=== PATIENT | female | born 1995 | race Caucasian/White ===

== ENCOUNTER 2019-12-10 12:22 | Emergency (ER) | payer BC, SELFPAY ==
--- NOTE | 2019-12-10 12:26 | ED.GENADULT ---
HPI - General Adult General Chief complaint: Upper Respiratory Infection Stated complaint: Ears throat and cough Time Seen by Provider: 12/10/19 12:38 Source: patient Mode of arrival: ambulatory Limitations: no limitations History of Present Illness HPI narrative: 24-year-old female patient presents to the [facility] with complaints of sore throat for the past week. Patient states she has had a little bit of pain to bilateral ears as well. Denies any fevers but states she has had a little bit of a stuffy runny nose especially in the morning. Denies any chest pain, shortness of breath. Patient states a slight cough and does admit to vaping. Denies any abdominal pain, nausea, vomiting or diarrhea. Patient denies getting a flu shot this year. Patient states she has been taking [id number] sinus medication and Mucinex for her symptoms so far. Related Data Home Medications Medication Instructions Recorded Confirmed omeprazole 20 mg PO DAILY 12/10/19 12/10/19 Allergies Allergy/AdvReac Type Severity Reaction Status Date / Time No Known Allergies Allergy Unknown Verified 12/10/19 12:37 Review of Systems Review of Systems: Narrative: CONSTITUTIONAL: Denies fever, chills, or sweats. EYES: Denies visual changes, redness, or discharge. ENT: Positive rhinorrhea, congestion, sore throat, and bilateral otalgia. CARDIOVASCULAR: Denies chest pain, palpitations, or edema. RESPIRATORY: Positive mild cough denies dyspnea. GASTROINTESTINAL: Denies abdominal pain, nausea, vomiting, or diarrhea. GENITOURINARY: Denies dysuria or hematuria. SKIN: Denies rash or itching. MUSCULOSKELETAL: Denies back pain, joint pain, or myalgia. NEUROLOGIC: Denies headache, numbness, or weakness. PSYCHIATRIC: Denies anxiety or depression. PMFSH Comments At the time of my signature I agree with nursing past medical history, surgical, social, and family history. There is no relevant family history pertinent to the presenting complaint. Exam Narrative: Exam Narrative: GENERAL: Well-appearing, well-nourished, and in no acute distress. HEAD: Normocephalic, atraumatic. No tenderness noted to frontal maxillary sinuses on palpation EYES: PERRLA and EOMI. ENT: Nares with erythema and edema noted bilaterally, patent, no rhinorrhea or epistaxis. Mucous membranes moist. Posterior pharynx with slight erythema no tonsil enlargement, no exudates or lesions present. There is a little bit of fluid noted behind bilateral TMs on exam. NECK: Supple. No lymphadenopathy CHEST: Clear to auscultation. No respiratory distress. HEART: Regular rate and rhythm. No murmur heard. Normal peripheral pulses. ABDOMEN: Soft, nontender, nondistended, normal active bowel sounds. EXTREMITIES: Normal range of motion. No edema. SKIN: Warm, dry, no rash. NEURO: No focal deficits. Alert and oriented x3. Course Reevaluation(s) Reevaluation #1: Notified patient that she is positive today for strep. Discussed with her that we will discharge her home with an antibiotic for the strep infection she can continue taking Tylenol, ibuprofen and sinus medications for her symptoms. Discussed with patient I will write her off of work for today and tomorrow that she go back to work after that with no restrictions. Patient verbalized understanding denies any other questions or concerns at this time. Date: 12/10/19 Time: 12:51 Vital Signs Vital signs: Vital Signs Temperature 36.8 C 12/10/19 12:29 Pulse Rate 82 12/10/19 12:29 Respiratory Rate 16 12/10/19 12:29 Blood Pressure 111/67 12/10/19 12:29 Pulse Oximetry 99 12/10/19 12:29 Temperature 36.8 C 12/10/19 12:29 Pulse Rate 82 12/10/19 12:29 Respiratory Rate 16 12/10/19 12:29 Blood Pressure 111/67 12/10/19 12:29 Pulse Oximetry 99 12/10/19 12:29 Vital signs reviewed. Medical Decision Making Differential Diagnosis Differential Diagnosis: Differential diagnosis: Allergic rhinitis, chronic sinusitis, tonsillitis,
[2019-12-10 12:29] VITALS: BP 111/67; PULSE 82; RESP 16; TEMP 36.8; O2SAT 99
== END 2019-12-10 12:51 | disposition home or self-care (01) ==
PROVIDERS: Emergency Provider Nurse Practitioner Family
DX: J02.0 Streptococcal pharyngitis (principal); K21.9 Gastro-esophageal reflux disease without esophagitis
CPT/HCPCS: 87880; 99213; G0463

== ENCOUNTER 2020-01-10 08:23 | Emergency (ER) | payer BC, SELFPAY ==
[2020-01-10 08:24] VITALS: TEMP 36.9
--- NOTE | 2020-01-10 08:31 | ED.URI ---
HPI - URI/Sore Throat General Chief Complaint: Upper Respiratory Infection Stated Complaint: Ear pain/pressure/sore throat Time Seen by Provider: 01/10/20 08:34 Source: patient and RN notes reviewed History of Present Illness HPI Narrative: Patient is a 24-year-old female that presents the urgent care with complaints of bilateral ear pain/pressure and sore throat for 3 days. Patient states that she was treated for strep 2 weeks ago with amoxicillin and symptoms did improve. Patient has not used anything for her return of symptoms in the last 3 days. Denies any fever, chills, nausea, vomiting. Denies any shortness of breath or cough. Denies any known exposure to COVID-19. No other acute complaints. No acute distress noted. Patient read the plan of care. Related Data Allergies Allergy/AdvReac Type Severity Reaction Status Date / Time No Known Allergies Allergy Unknown Verified 12/10/19 12:37 Review of Systems Review of Systems: Narrative: CONSTITUTIONAL: Denies fever, chills, or sweats. EYES: Denies visual changes, redness, or discharge. ENT: Reports of sore throat and bilateral ear pain CARDIOVASCULAR: Denies chest pain, palpitations, or edema. RESPIRATORY: Denies cough or dyspnea. GASTROINTESTINAL: Denies abdominal pain, nausea, vomiting, or diarrhea. GENITOURINARY: Denies dysuria or hematuria. SKIN: Denies rash or itching. MUSCULOSKELETAL: Denies back pain, joint pain, or myalgia. NEUROLOGIC: Denies headache, numbness, or weakness. All other systems reviewed are negative, except as documented in HPI. PMFSH Comments At the time of my signature, I reviewed and agree with the nursing past medical, surgical, social, and family history. There is no relevant family history pertinent to the patient complaint. Exam Narrative: Exam Narrative: GENERAL: This is a well-nourished, well-developed patient, in no apparent distress. HEAD: normocephalic, atraumatic. EYES: PERRL. Sclera clear/white. Vision is grossly intact. EARS: External ears normal, auditory canals clear and without drainage, TMs normal without perforation. Hearing grossly intact. NOSE: External nose normal with no obvious nasal discharge THROAT: Mucous membranes moist, posterior pharynx clear. Moderate postnasal drainage NECK: Neck supple CARDIOVASCULAR: Regular rate and rhythm without murmurs, gallops, or rubs. RESPIRATORY: Clear to auscultation. Breath sounds equal bilaterally. No wheezes, rales, or rhonchi. SKIN: warm, intact with no suspicious lesions or rash, good texture and turgor. NEURO: awake, alert, and oriented to person, place and time. There were no obvious focal neurologic abnormalities. EXTREMITIES: No clubbing, cyanosis, or edema. Course Vital Signs Vital signs: Vital Signs Temperature 98.4 F 01/10/20 08:24 Temperature 98.4 F 01/10/20 08:24 Pulse Rate 89 01/10/20 08:42 Respiratory Rate 18 01/10/20 08:42 Blood Pressure 114/77 01/10/20 08:42 Pulse Oximetry 100 01/10/20 08:42 Reviewed MDM - URI/Sore Throat MDM Narrative Medical decision making narrative: Reviewed lab results with the patient. She is aware that strep swab was negative. Educated patient on culture we will call within 72 hours if culture is positive and antibiotics are necessary. Advised the patient to use Claritin and Flonase for postnasal drainage and symptom relief. May use Tylenol or ibuprofen as needed. Increase fluids. Use humidifier at night. Symptoms are most likely due to allergies. Follow-up with PCP within 2 to 5 days or for worsening symptoms or failure to improve. Differential Diagnosis Differential diagnosis: Likely upper respiratory infection, otitis media, sinusitis, viral infection, bronchitis, influenza and pharyngitis Lab Data Attestation: I reviewed the patient's lab results. Labs: Strep Screen Presumptive Negative *(Reference Range: Negative)* Critical Care Time Critical Care Time Critical Care Time:
[2020-01-10 08:42] VITALS: BP 114/77; PULSE 89; RESP 18; O2SAT 100
== END 2020-01-10 08:55 | disposition home or self-care (01) ==
PROVIDERS: Emergency Provider Nurse Practitioner Family
DX: J02.9 Acute pharyngitis, unspecified (principal)
CPT/HCPCS: 87081; 87880; 99213; G0463

== ENCOUNTER 2020-06-13 13:16 | Emergency (ER) | payer BC, SELFPAY ==
--- NOTE | 2020-06-13 13:28 | ED.URI ---
HPI - URI/Sore Throat General Chief Complaint: Upper Respiratory Infection Stated Complaint: sore throat/ear pain Time Seen by Provider: 06/13/20 13:29 Source: patient and RN notes reviewed History of Present Illness HPI Narrative: Patient is a 24-year-old female who presents the urgent care with complaints of sore throat and ear pain for 3 days. Patient states that she has been using hot tea and ibuprofen. States that her last dose of ibuprofen was last night. Also reports of a fever. Denies of any nausea or vomiting. No other acute complaints. No acute distress noted. Patient aware of the plan of care. Some parts of this dictation were generated by voice recognition software and may contain typographical and/or grammatical inaccuracies. Related Data Home Medications Medication Instructions Recorded Confirmed norethindrone-e.estradiol-iron [Lo 1 tablet PO DAILY 06/13/20 06/13/20 Loestrin Fe] Allergies Allergy/AdvReac Type Severity Reaction Status Date / Time No Known Allergies Allergy Unknown Verified 06/13/20 13:35 Review of Systems Review of Systems: Narrative: CONSTITUTIONAL: Reports a fever EYES: Denies visual changes, redness, or discharge. ENT: Reports of otalgia and sore throat CARDIOVASCULAR: Denies chest pain, palpitations, or edema. RESPIRATORY: Denies cough or dyspnea. GASTROINTESTINAL: Denies abdominal pain, nausea, vomiting, or diarrhea. GENITOURINARY: Denies dysuria or hematuria. SKIN: Denies rash or itching. MUSCULOSKELETAL: Denies back pain, joint pain, or myalgia. NEUROLOGIC: Denies headache, numbness, or weakness. All other systems reviewed are negative, except as documented in HPI. PMFSH Comments At the time of my signature, I reviewed and agree with the nursing past medical, surgical, social, and family history. There is no relevant family history pertinent to the patient complaint. Exam Narrative: Exam Narrative: GENERAL: This is a well-nourished, well-developed patient, in no apparent distress. HEAD: normocephalic, atraumatic. EYES: PERRL. Sclera clear/white. Vision is grossly intact. EARS: External ears normal, auditory canals clear and without drainage, TMs normal without perforation. Hearing grossly intact. NOSE: External nose normal with no obvious nasal discharge, nares without redness, no rhinorrhea. THROAT: Mucous membranes moist, posterior pharynx clear. NECK: Neck supple, non-tender without lymphadenopathy, masses or thyromegaly. CARDIOVASCULAR: Regular rate and rhythm without murmurs, gallops, or rubs. RESPIRATORY: Clear to auscultation. Breath sounds equal bilaterally. No wheezes, rales, or rhonchi. SKIN: warm, intact with no suspicious lesions or rash, good texture and turgor. NEURO: awake, alert, and oriented to person, place and time. There were no obvious focal neurologic abnormalities. EXTREMITIES: No clubbing, cyanosis, or edema. Course Vital Signs Vital signs: Vital Signs Temperature 100.3 F H 06/13/20 13:31 Pulse Rate 122 H 06/13/20 13:31 Respiratory Rate 06/13/20 13:31 Blood Pressure 136/70 06/13/20 13:31 Pulse Oximetry 100 06/13/20 13:31 Temperature 100.3 F H 06/13/20 13:31 Pulse Rate 122 H 06/13/20 13:31 Respiratory Rate 06/13/20 13:31 Blood Pressure 136/70 06/13/20 13:31 Pulse Oximetry 100 06/13/20 13:31 Reviewed MDM - URI/Sore Throat MDM Narrative Medical decision making narrative: Reviewed lab results with the patient. She is aware that strep swab was negative. Educated patient on culture. Considering we will be treating for tonsillitis, we will not call for a positive culture. Antibiotics will also treat if culture is positive. Therefore, if you would like to know your culture results, call back to the facility after 72 hours. Make sure to complete the antibiotic regimen. Use a [id number] antihistamine such as Benadryl, Zyrtec, Claritin for postnasal drainage and symptom relief. Do not sleep with the wi
[2020-06-13 13:31] VITALS: BP 136/70; PULSE 122; RESP 20; TEMP 37.9; O2SAT 100
== END 2020-06-13 14:07 | disposition home or self-care (01) ==
PROVIDERS: Emergency Provider Nurse Practitioner Family
DX: J02.9 Acute pharyngitis, unspecified (principal); K21.9 Gastro-esophageal reflux disease without esophagitis
CPT/HCPCS: 87081; 87880; 99213; G0463

== ENCOUNTER 2021-02-26 11:58 | Emergency (ER) | payer BC, SELFPAY ==
[2021-02-26 12:07] VITALS: BP 122/66; PULSE 97; RESP 18; TEMP 37.4; O2SAT 100
--- NOTE | 2021-02-26 12:08 | ED.URI ---
HPI - URI/Sore Throat General Chief Complaint: Upper Respiratory Infection Stated Complaint: Congested, Coughing Time Seen by Provider: 02/26/21 12:09 Source: patient and RN notes reviewed Mode of arrival: ambulatory Limitations: no limitations History of Present Illness HPI Narrative: 25 yo female presents to the [facility] with C/O Sinus congestion and runny nose for 4 days, Since has progressed to a productive cough. States her coughing has kept her up most of last night. States that work sent her home yesterday, Denies needing a covid test for return. Denies abdominal pain and chest pain. Denies nausea vomiting or diarrhea. Denies fevers. Related Data Allergies Allergy/AdvReac Type Severity Reaction Status Date / Time No Known Allergies Allergy Unknown Verified 02/26/21 12:18 Review of Systems Review of Systems: All systems reviewed & are unremarkable except as noted in HPI and below Constitutional: Constitutional: Reports no additional constitutional complaints, Denies chills, Denies fatigue, Denies fever(s) and Denies weakness Eyes: Eyes: Reports no additional eye complaints ENT: Reports as per HPI, Denies dysphagia, Denies dizziness, Reports nasal congestion and Denies sore throat Cardiovascular: Cardiovascular: Reports no additional cardiovascular complaints and Denies chest pain Respiratory: Respiratory: Reports as per HPI, Reports chest congestion, Reports cough, Denies dyspnea and Denies wheezing Gastrointestinal: Gastrointestinal: Reports no additional gastrointestinal complaints, Denies abdominal pain, Denies diarrhea, Denies nausea and Denies vomiting Musculoskeletal: Musculoskeletal: Reports no additional musculoskeletal complaints, Denies back pain, Denies myalgias and Denies muscle cramps Integumentary/Breasts: Skin/Breast: Reports system reviewed and no additional complaints, except as docu and Denies rash Neurologic: Reports system reviewed and no additional complaints, except as documented, Denies dizziness and Denies headache(s) Psychiatric: Psychiatric: Reports no additional psychiatric complaints PMFSH Comments At the time of my signature, I reviewed and agree with the nursing past medical, surgical, social, and family history. There is no relevant family history pertinent to the patient complaint. Exam Const: General: healthy appearing, no acute distress and alert Nutritional Appearance: well nourished Orientation/consciousness: patient oriented x3 Limitations: no limitations HENMT: Head: normal to inspection and atraumatic Ears: hearing grossly normal bilaterally, external ears normal and TM's normal bilaterally General nose exam: Normal external nose present, Abnormal mucous membranes and turbinates present boggy; not erythematous and not pale and Nasal discharge present clear Face and sinus: normal facial exam, sinuses nontender and face symmetric Mouth: Yes Normal oral and palatal mucosa present and Yes lip normal Throat: tonsils normal, uvula midline and postnasal drainage Eyes: Conjunctivae: conjunctivae normal Pupils: Equal, round and reactive pupils present Neck: Neck: normal visual inspection, no lymphadenopathy and no meningeal signs Chest: Chest palpation & inspection: normal inspection of the chest Resp: Effort & Inspection: normal respiratory effort and no use of accessory muscles Auscultation: clear to auscultation bilaterally, no crackles, no rales, no rhonchi and no wheezes Cardio: Rate: regular rate Rhythm: regular rhythm GI: GI Palp: Yes Soft to palpation and No Tenderness to palpation present (GI) : General: Yes no CVA tenderness Back/Spine/Pelvis: Back: no CVA tenderness Skin: General skin exam: normal color Rashes: no rashes Neuro: General: patient oriented x3, moves all extremities, no meningeal signs and no focal motor deficits Speech: normal speech Gait exam (Neuro): Normal gait present Extrem: General: normal to inspection and no pedal edema Psyc
== END 2021-02-26 12:25 | disposition home or self-care (01) ==
PROVIDERS: Emergency Provider Nurse Practitioner
DX: J32.9 Chronic sinusitis, unspecified (principal)
CPT/HCPCS: 99213; G0463

== ENCOUNTER 2021-05-04 11:48 | Emergency (ER) | payer BC, SELFPAY ==
[2021-05-04 11:54] VITALS: BP 116/55; PULSE 86; RESP 16; TEMP 37.1; O2SAT 100
[2021-05-04 12:01] VITALS: BP 116/55; PULSE 86; RESP 16; TEMP 37.1; O2SAT 100
--- NOTE | 2021-05-04 12:21 | ED.FEMALEGU ---
HPI - Female Genitourinary General Chief complaint: Urogenital-Female Stated complaint: Pt. is and has blood in urine Time Seen by Provider: 05/04/21 12:05 Source: patient and RN notes reviewed Mode of arrival: ambulatory Limitations: no limitations History of Present Illness HPI Narrative: Patient presents today complaining of a 3-day history of intermittent pink-tinged blood on the toilet paper when patient wipes after urinating, as well as some urinary frequency. Denies dysuria, abdominal pain, back pain, gross blood in the urine. Patient is 5 weeks . She has not yet had her first appointment or initiated care with an COUNTER CLERK. Patient does not remember getting any RhoGam during her last /delivery Related Data Allergies Allergy/AdvReac Type Severity Reaction Status Date / Time No Known Allergies Allergy Unknown Verified 02/26/21 12:18 Review of Systems Review of Systems: CONSTITUTIONAL: Denies body aches, fever, chills, or sweats. EYES: Denies visual changes, redness, or discharge. ENT: Denies rhinorrhea, congestion, sore throat, or otalgia. CARDIOVASCULAR: Denies chest pain, palpitations, or edema. RESPIRATORY: Denies cough or dyspnea. GASTROINTESTINAL: Denies abdominal pain, nausea, vomiting, or diarrhea. GENITOURINARY: Denies dysuria. + Blood on the toilet paper, frequency SKIN: Denies rash, itching, or wounds. MUSCULOSKELETAL: Denies back pain, joint pain, or myalgia. NEUROLOGIC: Denies headache, numbness, tingling, or weakness. PSYCH: Denies depression or anxiety. PMFSH Social History Social History Gender identity (if verbalized by the patient): Female Comments At time of signature, I have reviewed and agree with nursing past medical, surgical, social and family history unless otherwise noted. Please see nursing chart for further information. There is no relevant family history pertinent to the presenting complaint Exam Narrative: GENERAL: Well-appearing, well-nourished, and in no acute distress. HEAD: Normocephalic, atraumatic. EYES: EOMI. No redness or drainage. ENT: Mucous membranes pink and moist. NECK: Normal AROM. CHEST: No respiratory distress. Clear to auscultation. HEART: Regular rate and rhythm. No murmur appreciated. Normal peripheral pulses. ABDOMEN: Soft, nontender, nondistended, normal active bowel sounds. MUSCULOSKELETAL: No bony tenderness. EXTREMITIES: Normal range of motion. No edema. SKIN: Warm, dry, no rash. Capillary refill normal. Normal skin turgor. NEURO: No focal deficits. Alert and oriented x3. Gait steady. PSYCH: Normal affect. No signs of depression or anxiety. Course Vital Signs Vital signs: Vital Signs Temperature 98.8 F 05/04/21 11:54 Pulse Rate 86 05/04/21 11:54 Respiratory Rate 16 05/04/21 11:54 Blood Pressure 116/55 L 05/04/21 11:54 Pulse Oximetry 100 05/04/21 11:54 Temperature 98.8 F 05/04/21 12:01 Pulse Rate 86 05/04/21 12:01 Respiratory Rate 16 05/04/21 12:01 Blood Pressure 116/55 L 05/04/21 12:01 Pulse Oximetry 100 05/04/21 12:01 Reviewed MDM - Female Genitourinary Differential Diagnosis Differential diagnosis: Likely urinary tract infection and other (Spotting, miscarriage) Lab Data Attestation: I reviewed the patient's lab results. Labs: Urine Glucose Negative Reference Range: Negative Urine Bilirubin Negative Reference Range: Negative Urine Ketone Negative Reference Range: Negative Urine Specific [place] 1.030 Reference Range:1.001-1.035 Urine Blood Trace Reference Range: Nega
== END 2021-05-04 12:32 | disposition home or self-care (01) ==
PROVIDERS: Emergency Provider Nurse Practitioner
DX: O23.41 Unspecified infection of urinary tract in pregnancy, first trimester (principal); Z3A.01 Less than 8 weeks gestation of pregnancy
CPT/HCPCS: 81003; 87086; 99213; G0463

== ENCOUNTER 2021-07-21 09:00 | Emergency (ER) | payer BC, SELFPAY ==
[2021-07-21 09:05] VITALS: BP 126/76; PULSE 96; RESP 20; TEMP 36.8; O2SAT 100
--- NOTE | 2021-07-21 09:09 | ED.URI ---
HPI - URI/Sore Throat General Chief Complaint: Upper Respiratory Infection Stated Complaint: tina,ear pain,severe headache Time Seen by Provider: 07/21/21 09:11 Source: patient and RN notes reviewed Mode of arrival: ambulatory Limitations: no limitations History of Present Illness HPI Narrative: Iram is a 25 year old female patient who ambulated into [facility]. Patient states she has and sinus pain, sinus pressure, headache, cough, yellow congestion for 1 week. Patient has been taking Tylenol Cold and flu. Patient rates her headache a 5/10. Patient is 17 weeks .Denies any complications during . Related Data Home Medications Medication Instructions Recorded Confirmed vit-iron fum-folic ac 1 tablet PO DAILY 07/21/21 07/21/21 [ Tablet] Allergies Allergy/AdvReac Type Severity Reaction Status Date / Time No Known Allergies Allergy Unknown Verified 07/21/21 09:24 Review of Systems Review of Systems: CONSTITUTIONAL: Denies body aches, fever, chills, or sweats. EYES: Denies visual changes, redness, or discharge. ENT: + rhinorrhea, + congestion, sore throat, + otalgia. CARDIOVASCULAR: Denies chest pain, palpitations, or edema. RESPIRATORY: Denies cough or dyspnea. GASTROINTESTINAL: Denies abdominal pain, nausea, vomiting, or diarrhea. GENITOURINARY: Denies dysuria or hematuria. SKIN: Denies rash, itching, or wounds. MUSCULOSKELETAL: Denies back pain, joint pain, or myalgia. NEUROLOGIC: Denies headache, numbness, tingling, or weakness. PSYCH: Denies depression or anxiety. All systems reviewed & are unremarkable except as noted in HPI and below PMFSH Social History Social History Gender identity (if verbalized by the patient): Female Comments At time of signature, I have reviewed and agree with nursing past medical, surgical, social and family history unless otherwise noted. Please see nursing chart for further information. There is no relevant family history pertinent to the presenting complaint Exam Narrative: GENERAL: Well-appearing, well-nourished, and in no acute distress. HEAD: Normocephalic, atraumatic. EYES: EOMI. No redness or drainage. Conjunctivae normal. ENT: Mucous membranes pink and moist. Nasal membranes erythemic, clear rhinorrhea, TM's dull, moderate fluid noted. Posterior pharynx erythemic, no exudate, moderate clear post nasal drainage noted. NECK: Normal AROM. Supple. CHEST: No respiratory distress. Clear to auscultation. HEART: Regular rate and rhythm. No murmur appreciated. Normal peripheral pulses. ABDOMEN: Soft, nontender, nondistended, , MUSCULOSKELETAL: No bony tenderness. EXTREMITIES: Normal range of motion. No edema. SKIN: Warm, dry, no rash. Capillary refill normal. Normal skin turgor. NEURO: No focal deficits. Alert and oriented x3. Gait steady. PSYCH: Normal affect. No signs of depression or anxiety. Course Vital Signs Vital signs: Vital Signs Temperature 36.8 C 07/21/21 09:05 Pulse Rate 96 07/21/21 09:05 Respiratory Rate 20 07/21/21 09:05 Blood Pressure 126/76 07/21/21 09:05 Pulse Oximetry 100 07/21/21 09:05 Temperature 36.8 C 07/21/21 09:05 Pulse Rate 96 07/21/21 09:05 Respiratory Rate 20 07/21/21 09:05 Blood Pressure 126/76 07/21/21 09:05 Pulse Oximetry 100 07/21/21 09:05 Reviewed MDM - URI/Sore Throat Differential Diagnosis Differential diagnosis: Likely upper respiratory infection, otitis media, viral infection and pharyngitis Medical Records Attestation: I reviewed the patient's medical records. Lab Data Attestation: I reviewed the patient's lab results. Labs: Lab Results 07/21/21 Range/Units 09:10 POC SARS CoV-2 Ag Negative (Negative) Critical Care Time Critical Care Time Critical Care Time: No Discharge Plan Discharge Clinical Impression: Viral infection Patient Disposition: Home, Self-
== END 2021-07-21 09:38 | disposition home or self-care (01) ==
PROVIDERS: Emergency Provider Nurse Practitioner Family
DX: O98.512 Other viral diseases complicating pregnancy, second trimester (principal); Z3A.17 17 weeks gestation of pregnancy; Z20.822 Contact with and (suspected) exposure to COVID-19
CPT/HCPCS: 87426; 99213; C9803; G0463

== ENCOUNTER 2022-10-30 15:37 | Emergency (ER) | payer BC, OTHER, SELFPAY ==
[2022-10-30 15:44] VITALS: BP 126/71; PULSE 87; RESP 16; TEMP 36.5; O2SAT 99
--- NOTE | 2022-10-30 15:46 | ED.GENADULT ---
HPI - General Adult General Chief complaint: Urogenital-Female Stated complaint: Urinary Problem Source: patient and RN notes reviewed History of Present Illness HPI narrative: 27 yo F presents to ED with complaints of hematuria when she wipes and burning witih urination. Pt states this has been going on intermittently for the last couple weeks. Pt has some intermittent lower abdominal pain and thinks she has a UTI. Denies any vaginal discharge, fevers, chills rash, blisters, vomiting, diarrhea, or constipation. Patient also states she is due for her menstrual period this week. Some parts of this dictation were generated by voice recognition software and may contain typographical and/or grammatical inaccuracies. Related Data Home Medications Medication Instructions Recorded Confirmed norethindrone 1 mg-ethinyl 1 tablet PO DAILY 10/30/22 10/30/22 estradiol 10 mcg (24)-iron 10 mcg(2) tablet (Lo Loestrin Fe) Allergies Allergy/AdvReac Type Severity Reaction Status Date / Time No Known Allergies Allergy Unknown Verified 10/30/22 15:54 Review of Systems Review of Systems: CONSTITUTIONAL: Denies fever, chills, or sweats. EYES: Denies visual changes, redness, or discharge. ENT: Denies otalgia and sore throat CARDIOVASCULAR: Denies chest pain, palpitations, or edema. RESPIRATORY: Denies cough or dyspnea. GASTROINTESTINAL: Reports intermittent lower abdominal discomfort. GENITOURINARY: reports dysuria or hematuria. SKIN: Denies rash or itching. MUSCULOSKELETAL: Denies back pain, joint pain, or myalgia. PMFSH Social History Social History Gender identity (if verbalized by the patient): Female Comments At the time of my signature, I reviewed and agree with the nursing past medical, surgical, social, and family history. There is no relevant family history pertinent to the patient complaint. Exam Narrative: GENERAL: This is a well-nourished, well-developed patient, in no apparent distress. HEAD: normocephalic, atraumatic. EYES: PERRL. Sclera clear/white. Vision is grossly intact. EARS: External ears normal, auditory canals clear and without drainage, TMs normal without perforation. Hearing grossly intact. NOSE: External nose normal with no obvious nasal discharge, nares without redness, no rhinorrhea. THROAT: Mucous membranes moist, posterior pharynx clear. NECK: Neck supple, non-tender without lymphadenopathy, masses or thyromegaly. CARDIOVASCULAR: Regular rate and rhythm without murmurs, gallops, or rubs. RESPIRATORY: Clear to auscultation. Breath sounds equal bilaterally. No wheezes, rales, or rhonchi. GASTROINTESTINAL: Abdomen soft, non-tender, nondistended. Bowel sounds are active. No hepato-splenomegaly, or palpable masses. No guarding. SKIN: warm, intact with no suspicious lesions or rash, good texture and turgor. NEURO: awake, alert, and oriented to person, place and time. There were no obvious focal neurologic abnormalities. Course Course Level of Care: Express Care Visit Vital Signs Vital signs: Vital Signs Temperature 97.7 F 10/30/22 15:44 Pulse Rate 87 10/30/22 15:44 Respiratory Rate 16 10/30/22 15:44 Blood Pressure 126/71 10/30/22 15:44 Pulse Oximetry 99 10/30/22 15:44 Oxygen Delivery Room Air 10/30/22 15:44 Temperature 97.7 F 10/30/22 15:44 Pulse Rate 87 10/30/22 15:44 Respiratory Rate 16 10/30/22 15:44 Blood Pressure 126/71 10/30/22 15:44 Pulse Oximetry 99 10/30/22 15:44 Oxygen Delivery Room Air 10/30/22 15:44 Reviewed Medical Decision Making MDM Narrative Medical decision making narrative: If your tests come back positive, you will receive a phone call with the information. You have been treated for chlamydia and gonorrhea in the clinic. You may hold off on taking the Flagyl antibiotic until you know for sure if you are positive for trichomonas. 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
[2022-10-30] MEDS: AZITHROMYCIN 250 MG TABLET 1000 MG PO (16:51)
== END 2022-10-30 16:30 | disposition home or self-care (01) ==
PROVIDERS: Emergency Provider Nurse Practitioner Family
DX: R30.0 Dysuria (principal); K21.9 Gastro-esophageal reflux disease without esophagitis
CPT/HCPCS: 81003; 87491; 87591; 87661; 96372; 99214; A9270; G0463; J0696

== ENCOUNTER 2022-12-01 15:24 | Emergency (ER) | payer BC, SELFPAY ==
--- NOTE | 2022-12-01 15:25 | ED.URI ---
HPI - URI/Sore Throat General Chief Complaint: Upper Respiratory Infection Stated Complaint: ear and throat Time Seen by Provider: 12/01/22 15:30 Source: patient and RN notes reviewed Mode of arrival: ambulatory Limitations: no limitations History of Present Illness HPI Narrative: 27-year-old female presents with concern for 2 week history of ear pain. Reports 2 weeks ago she thought her eardrum ruptured she had drainage from the ear. She reports since then it has been painful, she hears popping in the ear and the pain radiates down the neck, her hearing is decreased in that ear. She denies fever, rhinorrhea, nasal congestion. MD elicited complaint: other (Ear pain) Related Data Home Medications Medication Instructions Recorded Confirmed norethindrone 1 mg-ethinyl 1 tablet PO DAILY 10/30/22 10/30/22 estradiol 10 mcg (24)-iron 10 mcg(2) tablet (Lo Loestrin Fe) Allergies Allergy/AdvReac Type Severity Reaction Status Date / Time No Known Allergies Allergy Unknown Verified 10/30/22 15:54 Review of Systems Review of Systems: CONSTITUTIONAL: Denies malaise, chills, sweats, or fever. EYES: Denies visual changes, redness, or discharge. ENT: Denies rhinorrhea, congestion, sinus pain, and sore throat. Reports right ear pain, decreased hearing, pain radiates down the neck CARDIOVASCULAR: Denies chest pain, palpitations, or edema. RESPIRATORY: Reports cough. Denies dyspnea. GASTROINTESTINAL: Denies abdominal pain, nausea, vomiting, diarrhea SKIN: Denies rash or itching. MUSCULOSKELETAL: Denies myalgia. NEUROLOGIC: Denies headache. All systems reviewed & are unremarkable except as noted in HPI and below PMFSH Social History Social History Gender identity (if verbalized by the patient): Female Comments At time of signature, agree with nursing past medical, surgical, social and family history. There is no relevant family history pertinent to the presenting complaint Exam Narrative: GENERAL: Well-appearing, well-nourished, and in no acute distress. HEAD: Normocephalic EYES: PERRLA, conjunctivae clear ENT: Nares clear. Mucous membranes moist. Left tM pearly morris with dull light reflex, right TM erythematous bulging; no tragal tenderness. Oropharynx not erythematous without lesions. Tonsils not enlarged and without exudate, no drooling, no hoarseness, no trismus, uvula midline. NECK: Supple. No lymphadenopathy CHEST: Clear to auscultation, breath sounds equal. No wheezing, rhonchi, rales, or stridor. No respiratory distress, speaks in full sentences. HEART: Regular rate and rhythm. No murmur heard. SKIN: Warm, dry, no rash. NEURO: Alert and oriented x3. PSYCH: Normal mood and affect Course Course Emergency Course: Patient is aware of diagnosis, understands and agrees to treatment plan. Anticipatory guidance given. Patient agrees to follow-up as directed and is aware of reasons to seek care at the emergency department. Portions of this record may have been created with voice recognition software Level of Care: Express Care Visit Vital Signs Vital signs: Reviewed. MDM - URI/Sore Throat MDM Narrative Medical decision making narrative: Differential diagnosis considered: Pak virus, strep pharyngitis, allergic rhinitis, upper respiratory tract infection, sinusitis, rhinosinusitis, nasopharyngitis. viral pharyngitis, otitis media, otitis externa, pneumonia, bronchitis, viral cough syndrome, viral syndrome, and influenza. Exam findings show no acute concerns or changes; patient is non-toxic appearing and is in no distress. Patient is appropriate for outpatient treatment and follow-up. Lab Data Attestation: I reviewed the patient's lab results. Critical Care Time Critical Care Time Critical Care Time: No Discharge Plan Discharge Clinical Impression: Otitis media Patient Disposition: Home, Self-Care Condition: Stable Instructions: Antibiotic For
[2022-12-01 15:30] VITALS: BP 127/82; PULSE 82; RESP 16; TEMP 36.6; O2SAT 100
== END 2022-12-01 15:42 | disposition home or self-care (01) ==
PROVIDERS: Emergency Provider Nurse Practitioner
DX: H66.90 Otitis media, unspecified, unspecified ear (principal)
CPT/HCPCS: 99213; G0463

== ENCOUNTER 2023-02-14 13:31 | Emergency (ER) | payer BC, SELFPAY ==
[2023-02-14 13:36] VITALS: BP 130/60; PULSE 82; RESP 18; TEMP 36.9; O2SAT 100
[2023-02-14 13:49] VITALS: BP 130/60; PULSE 82; RESP 18; TEMP 36.9; O2SAT 100
--- NOTE | 2023-02-14 14:00 | ED.ABDPAIN ---
HPI - Abdominal Pain General Chief Complaint: Urogenital-Female Stated Complaint: Urinary Problem History of Present Illness HPI narrative: 27-year-old female presents to the [facility] today complaining a possible UTI and abdominal pain. Patient stated about 2 days ago she developed pain with urination. Patient today developed increased frequency and had to go urinate about for 5 times this morning with burning. Patient reports chronic, intermittent, RUQ abdominal pain x 4 years. Patient was concerned of a possible gallbladder attack in the last couple days as she has history of gallstones and has not had her gallbladder removed. Patient is a having diarrhea about 3 days ago and since then has resolved. Patient denies any nausea vomiting, chills, fevers, body aches, back pain, or flank pain. Patient does state having hematuria in her urine. Patient denies being on her period, any concern for STDs, or any . Related Data Allergies Allergy/AdvReac Type Severity Reaction Status Date / Time No Known Allergies Allergy Unknown Verified 02/14/23 13:55 Review of Systems Review of Systems: CONSTITUTIONAL: Denies fever, chills, or sweats. EYES: Denies visual changes, redness, or discharge. ENT: Denies otalgia and sore throat CARDIOVASCULAR: Denies chest pain, palpitations, or edema. RESPIRATORY: Denies cough or dyspnea. GASTROINTESTINAL: Denies nausea vomiting. Positive for right-sided abdominal pain. GENITOURINARY: Positive for dysuria and hematuria. SKIN: Denies rash or itching. MUSCULOSKELETAL: Denies back pain, joint pain, or myalgia. NEUROLOGIC: Denies headache, numbness, or weakness. Pertinent positives per HPI. PMFSH Social History Social History Gender identity (if verbalized by the patient): Female Comments At the time of my signature, I reviewed and agree with the nursing past medical, surgical, social, and family history. There is no relevant family history pertinent to the patient complaint. Exam Narrative: GENERAL: This is a well-nourished, well-developed patient, in no apparent distress. HEAD: normocephalic, atraumatic. EYES: Sclera clear/white. Vision is grossly intact. EARS: External ears normal, auditory canals clear and without drainage. Hearing grossly intact. NOSE: External nose normal with no obvious nasal discharge, nares without redness, no rhinorrhea. THROAT: Mucous membranes moist, posterior pharynx clear. NECK: Neck supple, non-tender without lymphadenopathy, masses or thyromegaly. CARDIOVASCULAR: Regular rate and rhythm without murmurs, gallops, or rubs. RESPIRATORY: Clear to auscultation. Breath sounds equal bilaterally. No wheezes, rales, or rhonchi. GASTROINTESTINAL: Abdomen soft, nondistended, there is mild tenderness to palpation to the right upper and lower quadrant of the abdomen. No guarding is present. Bowel sounds are active. No hepato-splenomegaly, or palpable masses. No CVA tenderness SKIN: warm, intact with no suspicious lesions or rash, good texture and turgor. NEURO: awake, alert, and oriented to person, place and time. There were no obvious focal neurologic abnormalities. EXTREMITIES: No clubbing, cyanosis, or edema. No joint tenderness, effusion, or edema noted. BACK: Nontender without deformity or crepitus. No flank tenderness. Course Course Level of Care: Express Care Visit Vital Signs Vital signs: Vital Signs Temperature 98.4 F 02/14/23 13:36 Pulse Rate 82 02/14/23 13:36 Respiratory Rate 18 02/14/23 13:36 Blood Pressure 130/60 02/14/23 13:36 Pulse Oximetry 100 02/14/23 13:36 Oxygen Delivery Room Air 02/14/23 13:36 Temperature 98.4 F 02/14/23 13:49 Pulse Rate 82 02/14/23 13:49 Respiratory Rate 18 02/14/23 13:49 Blood Pressure 130/60 02/14/23 13:49 Pulse Oximetry 100 02/14/23 13:49 Oxygen Delivery Room Air 02/14/23 13:49 Review MDM - Abdominal Pain
== END 2023-02-14 14:15 | disposition home or self-care (01) ==
PROVIDERS: Emergency Provider Nurse Practitioner Family
DX: N39.0 Urinary tract infection, site not specified (principal); K21.9 Gastro-esophageal reflux disease without esophagitis
CPT/HCPCS: 81003; 81025; 87086; 99213; G0463

== ENCOUNTER 2023-09-16 16:36 | Emergency (ER) | payer BC, SELFPAY ==
[2023-09-16 17:07] VITALS: BP 128/76; PULSE 86; RESP 16; TEMP 37; O2SAT 100
--- NOTE | 2023-09-16 17:23 | ED.GENADULT ---
HPI - General Adult General Chief complaint: Urogenital-Female Stated complaint: Poss UTI Source: patient, RN notes reviewed and old records reviewed Mode of arrival: ambulatory Limitations: no limitations History of Present Illness HPI narrative: 28-year-old female presents to [facility] with complaints burning with urination that started 3 days ago. Patient also has suprapubic tenderness. Patient states is concerned for STDs due to recent partner cheating. MD complaint: Dysuria Onset (ago): day(s) (2) Related Data Home Medications Medication Instructions Recorded Confirmed No Home Medications 09/16/23 09/16/23 Allergies Allergy/AdvReac Type Severity Reaction Status Date / Time No Known Allergies Allergy Unknown Verified 09/16/23 17:20 Review of Systems Constitutional: Constitutional: Reports no additional constitutional complaints, Denies body ache(s), Denies chills, Denies fatigue, Denies fever(s) and Denies headache(s) Eyes: Eyes: Reports no additional eye complaints and Denies blurry vision ENT: Reports system reviewed and no additional complaints, except as documented, Denies vertigo, Denies dizziness, Denies ear discharge, Denies otalgia, Denies facial pain, Denies headache(s), Denies nasal congestion, Denies nasal discharge, Denies sinus pain, Denies sinus pressure and Denies sore throat Cardiovascular: Cardiovascular: Reports no additional cardiovascular complaints, Denies chest pain, Denies chest pain at rest, Denies rapid heart rate and Denies dyspnea Respiratory: Respiratory: Reports no additional respiratory complaints, Denies chest congestion, Denies cough, Denies pain on inspiration, Denies pain with cough and Denies dyspnea Gastrointestinal: Gastrointestinal: Reports as per HPI, Reports abdominal pain, Denies diarrhea, Denies nausea and Denies vomiting Genitourinary: Genitourinary: Reports as per HPI, Reports dysuria and Reports vaginal discharge ( patient states always has vaginal discharge) Integumentary/Breasts: Skin/Breast: Denies rash Neurologic: Reports system reviewed and no additional complaints, except as documented, Denies vertigo, Denies dizziness and Denies headache(s) Endocrine: Endocrine: Denies fatigue PMF Social History Social History Gender identity (if verbalized by the patient): Female Comments At the time of my signature, I reviewed and agree with the nursing past medical, surgical, social, and family history. There is no relevant family history pertinent to the patient complaint. Exam Const: General: cooperative, healthy appearing, no acute distress and well nourished Nutritional Appearance: well nourished Orientation/consciousness: patient oriented x3 Limitations: no limitations HENMT: Head: normal to inspection and normocephalic Ears: external ears normal, TM's normal bilaterally, mastoids normal and Abnormal EAC present Face/Nose/Sinus: normal facial exam Face and sinus: normal facial exam Mouth: Yes Normal oral and palatal mucosa present, Yes oropharynx normal and Yes moist mucous membranes Throat: tonsils normal, uvula midline and no uvular edema Eyes: General: appearance normal, both eyes and all related structures Sclera: sclerae normal Pupils: Equal, round and reactive pupils present Resp: Effort & Inspection: normal respiratory effort, able to speak in complete sentences, no audible wheezes, no cough, no respiratory distress and no retractions Auscultation: clear to auscultation bilaterally, no crackles, no rales, no rhonchi and no wheezes Cardio: Rate: regular rate Rhythm: regular rhythm GI: Inspection: normal to inspection GI Palp: Yes abdominal tenderness ( suprapubic), Yes Soft to palpation, No Firmness to palpation present (GI), Yes Tenderness to palpation present (GI), No Guarding due to palpation present (GI), No Rigid due to palpation and Yes No hepatosplenomegaly present Auscultation:
[2023-09-16 20:16] LABS: Trichomonas Vag PCR NOT DETECTED (NOT DETECTE)
[2023-09-16 20:38] LABS: Chlamydia trachomatis NOT DETECTED (NOT DETECTE); Neisseria gonorrhoeae PCR NOT DETECTED (NOT DETECTE)
== END 2023-09-16 17:36 | disposition home or self-care (01) ==
PROVIDERS: Emergency Provider Registered Nurse
DX: R30.0 Dysuria (principal)
CPT/HCPCS: 81003; 87491; 87591; 87661; 99214; G0463